=== PATIENT | female | born 1945 | race Caucasian/White ===

== ENCOUNTER 2016-08-29 21:32 | Inpatient (IN) | payer OTHER ==
[~2016-08-29] VITALS: Ht 154.9 cm; Wt 63.0 kg
--- NOTE | ~2016-08-29 | EKG ---
[address] [address] ELECTROCARDIOGRAM REPORT Name: COLTON TRIMBLE Room #: 204- ADM IN M.R.#: [id number] Admission: 08/29/16 Attend Phys: Ankit Yi MD, Discharge: Date of : 47 Report #: [id number] THIS REPORT FOR: //name// [facility] [place] [place] Test Date: 2016-08-30 Test Time: 12:13:27 Pat Name: COLTON TRIMBLE Department: Room: 204 Gender: F Applique Sewer: Ragini MCKEON : 1945 Requested By: Ankit Yi Order Number: [id number] MD: Tarik Abdul Measurements Intervals [place] Rate: 80 P: 59 [place]: 146 QRS: 21 QRSD: 85 T: -24 QT: 394 QTc: 455 Interpretive Statements Sinus rhythm Borderline T abnormalities, diffuse leads Compared to ECG 04/27/2013 09:50:44 T-wave abnormality now present Electronically Signed On 08-30-2016 18:05:00 CDT by Tarik Abdul [email or web address] <ELECTRONICALLY SIGNED> By: Tarik Abdul MD 08/30/16 1805 121 121 Tarik Abdul MD /EPI
--- NOTE | ~2016-08-29 | EKG ---
[place] [address] [facility] [place] [address] ELECTROCARDIOGRAM REPORT Name: COLTON TRIMBLE Room #: 204- ADM IN M.R.#: [id number] Admission: 08/29/16 Attend Phys: Ankit Yi MD, Discharge: Date of : 47 Report #: [id number] THIS REPORT FOR: //name// [facility] Test Date: 2016-08-31 Test Time: 06:46:02 Pat Name: COLTON TRIMBLE Department: Room: 204 Gender: F Partner Manager: madeline : 1945 Requested By: Ankit Yi Order Number: [id number] MD: Guru Martinez Measurements Intervals [place] Rate: 76 P: 61 GA: 148 QRS: 27 QRSD: 88 T: 11 QT: 391 QTc: 440 Interpretive Statements Sinus rhythm No significant abnormality Compared to ECG 08/30/2016 12:13:27 T-wave abnormality no longer present Electronically Signed On 08-31-2016 8:58:08 CDT by Guru Martinez [email or web address] <ELECTRONICALLY SIGNED> By: Guru Martinez MD, [facility] 08/31/16 0858 5 5 Guru Martinez MD, [facility] /EPI
--- NOTE | ~2016-08-29 | H ---
[facility] [place] [address] HISTORY AND PHYSICAL Name: COLTON TRIMBLE Room #: 204- ADM IN M.R.#: [id number] Admission: 08/29/16 Attend Phys: Ankit Yi MD, Discharge: Date of : 47 Report #: [id number] THIS REPORT FOR: //name// CC: Laura Yi HISTORY OF PRESENT ILLNESS: The patient is in the catheterization lab. The patient is a 70-year-old female here, her room is 204, admitted for chest pain last night. I have been seeing the patient in the office for the last couple of weeks, had an emergency room visit to another hospital a month or so ago with chest pain and had a negative stress echo. Subsequently, insurance refused. Although despite having recurrent pain, we did nuclear stress testing in our office, which did not show significant ischemia that was on August 07. Unfortunately, she continued to have classical anginal symptoms that brought on with exertion and relieved with rest. She has had a marked decrease in exercise tolerance. Last night over the weekend, she has had some recurrent discomfort and finally came in last night, which was relieved with nitro, has since had mild intermittent pain during the night, but troponin is negative. EKG does not show acute changes, but she is currently brought to the catheterization lab to delineate the anatomy. Longstanding diabetes. MEDICATIONS: Metformin, Glucophage, 10 mg of atorvastatin, and an aspirin. No blood pressure medications. PAST MEDICAL HISTORY: Positive for the hypercholesterolemia; borderline hypertension, although diet-controlled; diabetes; dyslipidemia; strong family history of premature coronary artery disease; and arthritis issues. ALLERGIES: TETRACYCLINE. FAMILY HISTORY: Both parents have had documented coronary artery disease in their 60s. SOCIAL HISTORY: She is , former smoker, quit 30 years ago. No alcohol use. Three children. REVIEW OF SYSTEMS: Essentially negative except for some intermittent constipation and as stated above. PHYSICAL EXAMINATION: VITAL SIGNS: Blood pressure 136/74 and pulse 70. HEENT: Eyes reveal xanthelasmas. Pharynx is clear. NECK: Preserved upstrokes without JVD or bruits. LUNGS: Clear. CARDIOVASCULAR: Regular rate and rhythm, S1, S2, without murmur or gallop. ABDOMEN: Soft. No HSM or abdominal bruit. [facility] [address] [place] [address] HISTORY AND PHYSICAL Name: COLTON TRIMBLE [place] Room #: 204-P [facility] IN M.R.#: [id number] Admission: 08/29/16 Attend Phys: Ankit Yi MD, Discharge: Date of : 47 Report #: [id number] EXTREMITIES: No edema. Distal pulses were intact. NEUROLOGIC: Nonfocal. SKIN: Warm and dry without xanthoma or ulcer. MUSCULOSKELETAL: Generalized arthritic changes. LABORATORY DATA: Potassium is 4.1, creatinine is 0.9. H and H 14 and 41. ASSESSMENT: 1. Chest pain consistent with accelerating angina. 2. Hypercholesterolemia. 3. Diabetes. 4. Strong family history of premature coronary disease. RECOMMENDATIONS: Aspirin and statin. Infarct has been ruled out by troponin. We will proceed to the catheterization lab to delineate the anatomy. Risks, benefits, and alternatives were discussed with the patient. She does elect to proceed. Thank you for allowing me to assist in the care of this patient. <ELECTRONICALLY SIGNED> By: Ankit Yi MD, FACC 08/30/16 1229 0744 0843 Ankit Yi MD, FACC /nt
--- NOTE | ~2016-08-29 | CATHLAB ---
[facility] [address] [employer] [place] [address] INVASIVE PROCEDURE REPORT Name: NAICOLTON Lawrence Room #: 204-P [facility] IN ..#: [id number] Admission: 08/29/16 Attend Phys: Ankit Yi, Discharge: Date of : 47 Date of Service: 08/30/16 0826 Report #: [id number] THIS REPORT FOR: //name// CC: Laura Yi DATE OF SERVICE: 08/30/2016 PROCEDURES: Left ventriculography, coronary angiography, abdominal aortography, PTCA stent of dominant RCA coronary vessel. DESCRIPTION OF PROCEDURE: The patient brought to the catheterization lab having recurrent chest pain and angina. Stress test did not reveal significant ischemia; however, these are classic anginal symptoms. The right groin prepped and draped in a sterile manner. 1% Xylocaine was used for local anesthesia. Versed was given for conscious sedation. A 6-Fijian sheath in the right femoral artery. Initially, a straight pigtail catheter performed a single DUPONT ventriculogram and an AP aortogram. There was mild right renal artery disease. The LV function was preserved. The abdominal aorta and iliac system were widely patent without aneurysm. FL4 for left coronary system, FR4 for the right coronary system, multiple views and obliques were taken. There is mild ostial left main disease 20% proximal LAD 30-40%. Mild distal disease circ OM with mild disease, nondominant and then a large dominant right with a subtotal proximal midvessel lesion 99%. I utilized a JR4 guide, heparin and Integrilin boluses. She looks good, EKG looks good. We gave her a little sublingual nitro or something, but she looks ____ I cannot imagine. These are 2.5 balloons and then exchanged over the wire magnet for a 3.0 x 15 coronary stent, postdilated up to 15 atmospheres yielding 0% residual and JIM grade 3 flow. I have nothing on this EKG. There is excellent result, had resolution of some ST segment changes. Has had some mild nausea and some mild discomfort post-procedure, but seems to be resolving. Had some nausea and treated with Zofran. A Mynx closure was utilized without complication. The patient tolerated this well without any hemodynamic compromise. No changes on EKG are noted. We will be transferred back to CV holding and then to CCU for post-stent protocol. Dual antiplatelet therapy at least 6 months and will evaluate. HEMODYNAMICS: Aortic 136/68, LV 136/8. IMPRESSION: 1. Successful percutaneous transluminal coronary angioplasty stent of the mid right coronary artery 99% lesion to 0 with a 3.0 x 15 Resolute drug-eluting stent, postdilated to 3.3 mm in size with large, dominant vessel, otherwise widely patent. 2. Left main with mild ostial disease of 20%. 3. Proximal LAD 30-40% proximal and mid vessel lesions with mild disease. 4. Circumflex obtuse marginal has a midvessel lesion of 30-40%. [facility] [address] [place] [address] INVASIVE PROCEDURE REPORT Name: COLTON TRIMBLE Room #: 204-P [facility] IN M.R.#: [id number] Admission: 08/29/16 Attend Phys: Ankit Yi, Discharge: Date of : 47 Date of Service: 08/30/16825 Report #: [id number] 5. Normal left ventricular size and systolic function, EF 55-60%. 6. Abdominal aorta is intact without aneurysm. Renal arteries and iliac system widely patent. RECOMMENDATIONS: Continue aggressive risk factor modification, dual antiplatelet therapy. I should note that Mynx closure was utilized without complication. Transferred to CCU in stable condition. By: 5 1159 Ankit Yi MD, FACC /nt
--- NOTE | ~2016-08-29 | EKG ---
[address] [address] ELECTROCARDIOGRAM REPORT Name: COLTON TRIMBLE Room #: 204-P ADM IN M.R.#: [id number] Admission: 08/29/16 Attend Phys: Ankit Yi MD, Discharge: Date of : 47 Report #: [id number] THIS REPORT FOR: //name// [facility] ED Test Date: 2016-08-29 Test Time: 21:27:02 Pat Name: COLTON TRIMBLE Department: Room: [facility] Gender: F It Project Coordinator: ELIDA : 1945 Requested By: Dunia Mims Order Number: [id number] MD: Tarik Abdul Measurements Intervals [place] Rate: 85 P: 56 [place]: 148 QRS: 20 QRSD: 81 T: -4 QT: 366 QTc: 436 Interpretive Statements Sinus rhythm Compared to ECG 04/27/2013 09:50:44 No significant changes Electronically Signed On 08-30-2016 17:55:03 CDT by Tarik Abdul [email or web address] <ELECTRONICALLY SIGNED> By: Tarik Abdul MD 08/30/16 1755 26 26 Tarik Abdul MD /OMAR
[~2016-08-29 21:32] MED LIST: GLUCOPHAGE500 MG PO; NORCO 5-325 TA1 EACH PO; ZOFRAN ODT4 MG PO
[2016-08-29 21:33] VITALS: BP 134/76
[2016-08-29 22:42] LABS: ABSOLUTE NEUTROPHILS 2.7 thou/uL (1.4-8.2); BASOPHILS 0.7 % (0.0-2.0); EOSINOPHILS 1.6 % (0.0-3.0); HEMATOCRIT 41.3 % (37.0-47.0); HEMOGLOBIN 14.1 gm/dL (12.0-15.0); LYMPHOCYTES 51.4 % (24.0-44.0); MCH 30.5 pg (26.0-34.0); MCHC 34.1 g/dL (28.0-37.0); MCV 89.4 fL (80.0-100.0); MONOCYTES 6.2 % (1.0-8.0); PLATELET COUNT 169 thou/uL (150-400); POLYS 40.1 % (36.0-66.0); RBC 4.62 mil/uL (4.20-5.00); RDW 12.1 % (10.5-14.5); WBC 6.8 thou/uL (4.0-11.0)
[2016-08-29 22:46] LABS: MANUAL DIFF NO
[2016-08-29 22:50] LABS: ANION GAP 4 mmol/L (7-16); BUN 24 mg/dL (7-18); CALCIUM 9.3 mg/dL (8.5-10.1); CHLORIDE 105 mmol/L (98-107); CO2 32 mmol/L (21-32); CREATININE 0.9 mg/dL (0.6-1.0); GLUCOSE 132 mg/dL (74-106); POTASSIUM 4.1 mmol/L (3.5-5.1); SODIUM 141 mmol/L (136-145)
[2016-08-29 22:58] LABS: TROPONIN-I < 0.04 ng/mL (<0.04-0.07)
[2016-08-29 23:32] VITALS: BP 148/76
[2016-08-29 23:59] VITALS: BP 129/68
[2016-08-30] VITALS (16 sets, daily range): BP systolic 109–128; BP diastolic 57–78
[2016-08-30] MEDS ORDERED: LIPITOR10 MG PO (01:16)
[2016-08-30 06:04] LABS: APTT 25.6 Seconds (24.5-32.8); PROTIME 10.1 Seconds (9.3-11.4)
[2016-08-30 11:46] LABS: HEMATOCRIT 41.3 % (37.0-47.0); HEMOGLOBIN 13.9 gm/dL (12.0-15.0)
[2016-08-31 00:32] VITALS: BP 116/68
[2016-08-31 03:25] LABS: HEMATOCRIT 38.6 % (37.0-47.0); HEMOGLOBIN 13.2 gm/dL (12.0-15.0); MCH 30.5 pg (26.0-34.0); MCHC 34.2 g/dL (28.0-37.0); MCV 89.2 fL (80.0-100.0); RBC 4.33 mil/uL (4.20-5.00); RDW 12.2 % (10.5-14.5); WBC 6.4 thou/uL (4.0-11.0)
[2016-08-31 03:45] LABS: ANION GAP 6 mmol/L (7-16); BUN 17 mg/dL (7-18); CALCIUM 8.8 mg/dL (8.5-10.1); CHLORIDE 106 mmol/L (98-107); CHOLESTEROL 142 mg/dL (<200); CO2 29 mmol/L (21-32); CREATININE 0.7 mg/dL (0.6-1.0); GLUCOSE 144 mg/dL (74-106); HDL CHOLESTEROL 44 mg/dL (>40); LDL CHOLESTEROL 78 mg/dL (<100); POTASSIUM 3.9 mmol/L (3.5-5.1); SODIUM 141 mmol/L (136-145); TC:HDL 3.2 Ratio (Not establshd); TRIGLYCERIDE 103 mg/dL (<150); TROPONIN-I 0.16 ng/mL (<0.04-0.07); VLDL 21 mg/dL (<40)
[2016-08-31 03:49] LABS: SERUM ASSESSMENT Clear
[2016-08-31 03:52] VITALS: BP 118/69
[2016-08-31 07:27] VITALS: BP 118/69
[2016-08-31 07:30] VITALS: BP 118/69
[2016-08-31] MEDS ORDERED: EFFIENT10 MG PO (07:35)
[2016-08-31] MEDS ORDERED: ASPIRIN325 PO (07:35)
[2016-08-31] MEDS ORDERED: METOPROLOL SUCC25 M1 PO (07:35)
[2016-08-31] MEDS ORDERED: LIPITOR20 MG PO (07:35)
[2016-08-31 07:45] VITALS: BP 111/57
== END 2016-08-31 11:15 | disposition home or self-care (01) | DRG 247 ==
LOC: ER 21:32 → 2N 23:16 → EROBS 23:16 → 2N 23:41
PROVIDERS: Emergency Medicine; Internal Medicine Cardiovascular Disease
PROC: 4A023N7 Measurement of Cardiac Sampling and Pressure, Left Heart, Percutaneous Approach (ICD-10-PCS; principal; 2016-08-30)
PROC: 027034Z Dilation of Coronary Artery, One Artery with Drug-eluting Intraluminal Device, Percutaneous Approach (ICD-10-PCS; principal; 2016-08-30)
PROC: B4101ZZ Fluoroscopy of Abdominal Aorta using Low Osmolar Contrast (ICD-10-PCS; principal; 2016-08-30)
PROC: B2111ZZ Fluoroscopy of Multiple Coronary Arteries using Low Osmolar Contrast (ICD-10-PCS; principal; 2016-08-30)
PROC: B2151ZZ Fluoroscopy of Left Heart using Low Osmolar Contrast (ICD-10-PCS; principal; 2016-08-30)
DX: I25.119 Atherosclerotic heart disease of native coronary artery with unspecified angina pectoris (principal); I10 Essential (primary) hypertension; E78.00 Pure hypercholesterolemia, unspecified; E11.9 Type 2 diabetes mellitus without complications; E78.5 Hyperlipidemia, unspecified; Z88.1 Allergy status to other antibiotic agents; Z87.891 Personal history of nicotine dependence; Z82.49 Family history of ischemic heart disease and other diseases of the circulatory system; Z82.61 Family history of arthritis; Z79.84 Long term (current) use of oral hypoglycemic drugs
CPT/HCPCS: 10081

== ENCOUNTER 2016-09-03 12:20 | Outpatient (CLI) | payer OTHER ==
[2016-09-03] VITALS (9 sets, daily range): BP systolic 116–132; BP diastolic 54–76
[~2016-09-03] VITALS: Ht 154.9 cm; Wt 66.2 kg
--- NOTE | ~2016-09-03 | CATHLAB ---
[facility] [address] [place] [address] INVASIVE PROCEDURE REPORT Name: COLTON TRIMBLE [id number] Admission: 09/03/16 Attend Phys: Guru Martinez, Discharge: 09/03/16 Date of : 47 Date of Service: 09/03/16 1552 Report #: [id number] THIS REPORT FOR: //name// CC: Laura Martinez Ankit Kassidy PROCEDURE: Left heart coronary angiography, FFR of the LAD. INDICATIONS: Chest pain and coronary artery disease. DESCRIPTION OF PROCEDURE: The potential benefits and risks of the procedure were discussed at length with the patient who understood. Full written and informed consent was obtained The patient was brought into the catheterization suite, where right groin was prepped and draped in a sterile fashion. She was sedated with intravenous Versed. 1% Xylocaine was used as local anesthetic. A 6-Sammarinese sheath was placed in the right femoral artery by the modified Seldinger technique. Left heart catheterization was performed with a 6-Sammarinese angled pigtail catheter. A single plain ventriculogram was performed in the DUPONT view. Pullback gradients were measured across the aortic valve. Selective coronary angiography was performed with a 6-Sammarinese left and right 4 cm Marissa coronary catheter. All diagnostic catheters were removed. FFR assessment was made of the proximal LAD. A JL4 launcher guide catheter was placed over a wire with its tip at the ostium of the left main as FFR wire was placed down the LAD with an FFR of 0.98. Adenosine was infused. FFR remained unchanged. All catheters were removed. A hand injection was performed through the groin sheath and a Mynx was deployed. The patient remained in excellent condition at the conclusion of the procedure with good right groin hemostasis and intact distal pulses. RESULTS: LEFT HEART HEMODYNAMICS: 1. Left ventricular systolic pressure of 124. 2. Left ventricular end diastolic pressure of 18. 3. Aortic valve, no gradient was present on pullback across the aortic valve, central aortic pressure of 124/80. ANGIOGRAPHY: LEFT VENTRICULOGRAM: Ventriculography demonstrated normal global and regional left ventricular systolic function. Ejection fraction was estimated at 65%. SELECTIVE CORONARY ANGIOGRAPHY: 1. Left main: Left main exhibited minimal plaquing. 2. Left anterior descending: Left anterior descending was a moderately large vessel that extended to the distal anterior wall. There was moderate 30-40% proximal LAD stenosis. This was not flow limiting by FFR assessment. The remaining portion of the LAD exhibited mild plaquing LAD gave rise to a large [facility] [address] [place] [address] INVASIVE PROCEDURE REPORT Name: NAICOLTON PAMELA Room #: LYUDMILA [place]#: [id number] Admission: 09/03/16 Attend Phys: Guru Martinez, Discharge: 09/03/16 Date of : 47 Date of Service: 09/03/16 1552 Report #: [id number] diagonal branch, which exhibited moderate mid vessel plaquing of 20-30%. 3. The circumflex: The circumflex was large, but nondominant. The circumflex exhibited 20-30% proximal and midvessel plaquing, distally arising marginal branch appeared to be free of occlusive disease. 4. The right coronary was dominant. A widely patent mid right coronary stent was evident. Distal right coronary including a large posterior descending and posterolateral branch was free of occlusive disease. SUMMARY: 1. Normal global and regional left ventricular systolic function. Ejection fraction 65%. 2. [id number]-[id number] nonocclusive coronary plaquing as described above. 3. Normal FFR assessment of the proximal LAD. <ELECTRONICALLY SIGNED> By: Guru Martinez MD, FACC 09/09/16 1641 1552 1902 Guru Martinez MD, FACC /nt
[~2016-09-03 12:20] MED LIST changes: +ASPIRIN325 PO; +EFFIENT10 MG PO; +LIPITOR10 MG PO; +LIPITOR20 MG PO; +METOPROLOL SUCC25 M1 PO
== END 2016-09-03 19:50 | disposition home or self-care (01) ==
LOC: CATH 12:20 → 2N 16:40 → CATH 19:50
DX: I25.10 Atherosclerotic heart disease of native coronary artery without angina pectoris (principal); E11.9 Type 2 diabetes mellitus without complications; E78.00 Pure hypercholesterolemia, unspecified; Z82.49 Family history of ischemic heart disease and other diseases of the circulatory system; Z87.891 Personal history of nicotine dependence; Z88.1 Allergy status to other antibiotic agents; Z79.82 Long term (current) use of aspirin; Z79.899 Other long term (current) drug therapy

== ENCOUNTER → 2019-10-24 | Outpatient (CLI) | payer OTHER | LOC: SJCVC 11:43 | PROVIDERS: ATTEND Internal Medicine Cardiovascular Disease | DX: I25.10 Atherosclerotic heart disease of native coronary artery without angina pectoris (principal); R94.31 Abnormal electrocardiogram [ECG] [EKG]; I10 Essential (primary) hypertension; I65.29 Occlusion and stenosis of unspecified carotid artery; E78.5 Hyperlipidemia, unspecified; E11.9 Type 2 diabetes mellitus without complications; Z79.899 Other long term (current) drug therapy; Z87.891 Personal history of nicotine dependence ==

== ENCOUNTER 2020-03-25 14:27 | Emergency (ER) | payer OTHER ==
[~2020-03-25] VITALS: Ht 154.9 cm; Wt 69.8 kg
[2020-03-25 14:53] LABS: ABSOLUTE NEUTROPHILS 3.2 thou/uL (1.4-8.2); BASOPHILS 0.4 % (0.0-2.0); EOSINOPHILS 1.9 % (0.0-3.0); HEMATOCRIT 42.6 % (37.0-47.0); HEMOGLOBIN 14.2 gm/dL (12.0-15.0); LYMPHOCYTES 42.3 % (24.0-44.0); MCH 30.9 pg (26.0-34.0); MCHC 33.3 g/dL (28.0-37.0); MCV 92.6 fL (80.0-100.0); PLATELET COUNT 187 thou/uL (150-400); POLYS 49.4 % (36.0-66.0); WBC 6.4 thou/uL (4.0-11.0)
[2020-03-25 15:02] LABS: CALCIUM 9.8 mg/dL (8.5-10.1); CREATININE 0.9 mg/dL (0.6-1.0); POTASSIUM 3.7 mmol/L (3.5-5.1)
[2020-03-25 15:07] LABS: ALBUMIN 3.8 g/dL (3.4-5.0); TOTAL BILIRUBIN 0.4 mg/dL (0.2-1.0); TOTAL PROTEIN 7.4 g/dL (6.4-8.2)
[2020-03-25] MEDS ORDERED: ROBAXIN 750 MG750 MG PO (17:18)
[2020-03-25] MEDS ORDERED: TYLENOL325 M1 PO (17:18)
[2020-03-25 17:51] VITALS: BP 125/60
== END 2020-03-25 17:52 | disposition home or self-care (01) ==
LOC: ER 14:27
PROVIDERS: Emergency Medicine
DX: S39.012A Strain of muscle, fascia and tendon of lower back, initial encounter (principal); S20.212A Contusion of left front wall of thorax, initial encounter; M54.6 Pain in thoracic spine; R51.9 Headache, unspecified; I10 Essential (primary) hypertension; E78.5 Hyperlipidemia, unspecified; I25.10 Atherosclerotic heart disease of native coronary artery without angina pectoris; E11.9 Type 2 diabetes mellitus without complications; Z79.899 Other long term (current) drug therapy; Z79.82 Long term (current) use of aspirin; V89.2XXA Person injured in unspecified motor-vehicle accident, traffic, initial encounter; Y93.I9 Activity, other involving external motion; Y92.488 Other paved roadways as the place of occurrence of the external cause; Y99.8 Other external cause status; Z88.1 Allergy status to other antibiotic agents

== ENCOUNTER → 2020-05-15 | Outpatient (CLI) | payer OTHER ==
[~2020-05-15] MED LIST changes: +ROBAXIN 750 MG750 MG PO; +TYLENOL325 M1 PO
== END ==
LOC: SJCVC 12:57
PROVIDERS: ATTEND Internal Medicine Cardiovascular Disease
DX: I25.10 Atherosclerotic heart disease of native coronary artery without angina pectoris (principal); I10 Essential (primary) hypertension; E78.5 Hyperlipidemia, unspecified; E11.9 Type 2 diabetes mellitus without complications; Z88.1 Allergy status to other antibiotic agents; Z86.73 Personal history of transient ischemic attack (TIA), and cerebral infarction without residual deficits; Z87.891 Personal history of nicotine dependence; Z79.82 Long term (current) use of aspirin; Z79.899 Other long term (current) drug therapy

== ENCOUNTER → 2020-10-23 | Outpatient (CLI) | payer OTHER | LOC: SJCVC 15:00 | PROVIDERS: ATTEND Internal Medicine Cardiovascular Disease | DX: I25.10 Atherosclerotic heart disease of native coronary artery without angina pectoris (principal); I10 Essential (primary) hypertension; E78.5 Hyperlipidemia, unspecified; R07.9 Chest pain, unspecified; E11.9 Type 2 diabetes mellitus without complications; I65.23 Occlusion and stenosis of bilateral carotid arteries; Z98.890 Other specified postprocedural states; Z79.82 Long term (current) use of aspirin; Z88.8 Allergy status to other drugs, medicaments and biological substances; Z79.84 Long term (current) use of oral hypoglycemic drugs; Z79.899 Other long term (current) drug therapy; Z87.891 Personal history of nicotine dependence; Z86.16 Personal history of COVID-19; Z82.49 Family history of ischemic heart disease and other diseases of the circulatory system ==

== ENCOUNTER 2020-10-24 08:26 | Emergency (ER) | payer OTHER ==
[~2020-10-24] VITALS: Ht 154.9 cm; Wt 68.0 kg
[2020-10-24 08:46] VITALS: BP 120/63
[2020-10-24 08:54] LABS: ABSOLUTE NEUTROPHILS 4.7 thou/uL (1.4-8.2); BASOPHILS 0.4 % (0.0-2.0); HEMATOCRIT 41.6 % (37.0-47.0); LYMPHOCYTES 44.4 % (24.0-44.0); MCHC 33.7 g/dL (28.0-37.0); MCV 91.9 fL (80.0-100.0); MONOCYTES 5.4 % (1.0-8.0); PLATELET COUNT 183 thou/uL (150-400); POLYS 48.8 % (36.0-66.0); RBC 4.52 mil/uL (4.20-5.00); RDW 12.7 % (10.5-14.5); WBC 9.7 thou/uL (4.0-11.0)
[2020-10-24 09:09] LABS: CALCIUM 9.1 mg/dL (8.5-10.1); CREATININE 0.8 mg/dL (0.6-1.0); POTASSIUM 3.9 mmol/L (3.5-5.1)
--- NOTE | 2020-10-24 09:31 | EKG ---
[place] [address] [address] [facility] [place] [address] ELECTROCARDIOGRAM REPORT Name: COLTON TRIMBLE [facility] [id number] Admission: 10/24/20 Attend Phys: Discharge: 10/24/20 Date of : 47 Report #: [id number] [facility] ED Test Date: 2020-10-24 Test Time: 08:34:41 Pat Name: COLTON TRIMBLE Department: Room: Gender: F [employer] Footballer: : 1945 Requested By: Jorge Randolph Order Number: [id number] MD: Sea Connor Measurements Intervals [place] Rate: 67 P: 44 [place]: 148 QRS: 22 QRSD: 98 T: -3 QT: 388 QTc: 410 Interpretive Statements Sinus rhythm Compared to ECG 08/31/2016 06:46:02 No significant changes Electronically Signed On 10-24-2020 9:31:16 CDT by Sea Connor [email or web address] <ELECTRONICALLY SIGNED> By: Sea Connor MD, [facility] 10/24/20 0931 0834 0834 Sea Connor MD, FACC /EPI
== END 2020-10-24 08:46 | disposition home or self-care (01) ==
LOC: ER 08:26
PROVIDERS: Emergency Medicine
DX: R42 Dizziness and giddiness (principal); I10 Essential (primary) hypertension; I25.10 Atherosclerotic heart disease of native coronary artery without angina pectoris; E11.9 Type 2 diabetes mellitus without complications; E78.00 Pure hypercholesterolemia, unspecified; Z79.899 Other long term (current) drug therapy; Z88.1 Allergy status to other antibiotic agents